=== PATIENT | male | born 1990 | race Caucasian/White ===

== ENCOUNTER 2024-03-23 13:32 | Emergency (ER) | payer OTHER, SELFPAY ==
[2024-03-23 13:38] VITALS: BP 178/96
[2024-03-23 14:34] VITALS: BMI 47.4
--- NOTE | 2024-03-23 15:20 | ED.GENMED ---
History of Present Illness
General
Chief Complaint: Musculo-Skeletal Complaint
Source: patient
Exam Limitations: none
Time Seen by Provider: 03/23/24 14:46
Nursing documentation reviewed up to this point in time: agreed with
History of Present Illness
History of Present Illness:
Patient is a 34-year male who presents to the ER complaining of pain to the left hip groin rating to his anterior thigh associated with numbness to his left anterior franklin for the past 2 weeks. He denies any actual back pain. This started after
lifting up his [id number] child. He does have a history of radiculopathy and had discectomy years ago but this feels a little different. He does have an upcoming appointment with [facility]. He has not taken anything for his symptoms. He denies
any bowel or bladder incontinence. denies any actual weakness. At times his left leg feels heavy.
Review of Systems
Review of Systems
Allergies reviewed?: Yes
All Other Systems: ROS reviewed and negative except as documented in HPI and ROS
Constitutional: Reports no symptoms
Skin: Reports no symptoms
Neurological: Reports other (numbness to left anterior franklin )
Psychiatric: Reports no symptoms
Phy Exam
General Physical Exam
General Presentation: no apparent distress
General age: appears stated age
General Skin: warm and dry
General Habitus: normal
General Mental: alert
General Hydration: appears well hydrated
Neurological Exam
Neurological Exam: alert, oriented x3 and other (Normal patellar reflexes bilaterally normal dorsiflexion plantarflexion no obvious weakness to bilateral lower extremities; pt reports slight dec sensation to small area of anterior lower leg )
Musculoskeletal Exam
Musculoskeletal Exam: full ROM
Skin Exam
Skin Exam: normal color and warm/dry
Psychiatric Exam
Psychiatric Exam: normal mood/affect
Course
Orders/Labs/Results
Orders:
Orders
03/23/24 15:19
Hip, Left 2-3 Views [CR Hip - LT w/wo Pel 2-3 Vw*] Urgent
Comment:
Reason For Exam: pain
Include a pelvis x-ray?: Yes
03/23/24 15:20
Dexamethasone Sod Phosphate [Decadron] 10 mg IM NOW STA
Vital Signs
Initial and Last Documented VS:
Initial Vital Signs
Temp Pulse Resp BP Pulse Ox
98.4 F 99 16 178/96 97
03/23/24 13:38 03/23/24 13:38 03/23/24 13:38 03/23/24 13:38 03/23/24 13:38
Last Documented Vital Signs
Temp Pulse Resp BP Pulse Ox
98.4 F 99 16 178/96 97
03/23/24 13:38 03/23/24 13:38 03/23/24 13:38 03/23/24 13:38 03/23/24 13:38
MDM/Problems Addressed
Differential Diagnosis Includes:
Not limited not limited radiculopathy sciatica
MDM/Problems Addressed:
Symptoms are consistent with radicular pain. Patient no acute distress with normal neurological exam normal reflexes and normal strength. No concerning findings no bowel or bladder incontinence. Will check hip x-ray however plan to discharge on
steroid taper with outpatient follow-up with his orthopedic as scheduled at [facility]. Discussed with patient the importance of close follow-up with this appointment and that he may need outpatient MRI if symptoms continue.
No acute findings on hip today will DC as planned with outpatient Ortho follow-up steroid prescription transferred to patient's pharmacy
*Critical Care Note
Total Time (30-74mins, 75-104mins- exclusive of procedures): Not Applicable
ED Attending Note
-
Portions of this chart may have been created with voice recognition software.� Occasional wrong word or��sound alike� substitutions may have occurred due to the inherent limitations of voice recognition software.
Discharge Plan
Departure
Patient Disposition: Home (Routine Discharge)
Date of Disposition: 03/23/24
Time of Disposition: 16:55
Patient with high blood pressure during this ER visit?: Yes
Condition: Fair
Covid-19: Not Applicable
Discharge Problem:
Radiculopathy
Instructions: Radiculopathy (DC)
Prescriptions:
New
prednisone 10 mg Tablet
See Rx Instructions .ROUTE .COMPLEX Qty: 45 0RF
Rx Instructions:
Take By Mouth:
50 mg daily x3 days, 40 mg daily x3 days,
30 mg daily x3 days, 20 mg daily x3 days,
10 mg daily x3 days
Activity Restrictions/Additional Instructions:
As discussed you were given 1 dose of steroids here in the ER and your muscle. Start steroids tomorrow for steroid taper. This medication was sent to your pharmacy
Follow-up as scheduled with your orthopedic doctor and return if any worsening of symptoms including worsening pain loss of bowel or bladder weakness in legs or any further concerns.
Interventions
Interventions:
*Risk Screen - Suicide Last Done: 03/23/24 13:38
*General Assessment Last Done: 03/23/24 13:38
*Neglect/Abuse Screening Last Done: 03/23/24 13:38
ED- Fall Risk Assessment Last Done: 03/23/24 14:33
*ED COVID-19 Vaccine History Last Done: 03/23/24 14:33
ED-Musculoskeletal Assessment Last Done: 03/23/24 14:34
Discharge Date and Time
Print Language: WELSH
[2024-03-23] MEDS: DECADRON 10 MG IM (15:26)
[2024-03-23 16:59] VITALS: BP 143/99
== END 2024-03-23 17:00 | disposition home or self-care (01) ==
LOC: EMR 13:32
PROVIDERS: EMERGENCY PHYSICIAN Emergency Medicine
DX: M54.16 Radiculopathy, lumbar region (principal); M25.552 Pain in left hip; M79.652 Pain in left thigh; I10 Essential (primary) hypertension
CPT/HCPCS: 99284; 96372; 73502

== ENCOUNTER → 2024-04-28 06:47 | Outpatient (REF) | payer OTHER, SELFPAY | LOC: PAVMRI 06:47 | PROVIDERS: ATTENDING PHYSICIAN Physician Assistant Surgical; FAMILY PHYSICIAN Physician Assistant Medical | DX: M54.16 Radiculopathy, lumbar region (principal) | CPT/HCPCS: 72148 ==

== ENCOUNTER → 2025-04-22 10:58 | Outpatient (REF) | payer OTHER, SELFPAY | LOC: DHSLP 10:58 | PROVIDERS: ATTENDING PHYSICIAN Internal Medicine Critical Care Medicine; FAMILY PHYSICIAN Physician Assistant Medical | DX: G47.33 Obstructive sleep apnea (adult) (pediatric) (principal); R09.02 Hypoxemia | CPT/HCPCS: 95800 ==